=== PATIENT | male | born 1945 | race Caucasian/White ===

== ENCOUNTER 2019-12-12 14:19 | Outpatient (RCR) | payer SELFPAY | END 2019-12-12 23:59 | disposition home or self-care (01) | LOC: ANHAUDIO 14:19 | PROVIDERS: PCP Family Medicine; Visit Provider Family Medicine | DX: Z46.1 Encounter for fitting and adjustment of hearing aid (principal) | CPT/HCPCS: 99199; 92592 ==

== ENCOUNTER 2020-03-08 08:43 | Outpatient (CLI) | payer MEDICARE, OTHER, SELFPAY ==
--- NOTE | ~2020-03-08 | XR_ITS ---
EXAMINATION: XR chest 2V DATE: 03/08/2020 09:50 INDICATION: Cough TECHNIQUE: PA and lateral views of the chest are obtained. COMPARISON: 06/27/2019 FINDINGS: The lungs are free of acute opacities. There is no pleural effusion or pneumothorax. The ca rdiomediastinal silhouette is normal. There is mild thoracic spondylosis. IMPRESSION: 1. No acute cardiopulmonary abnormality. Reviewed, dictated and finalized at location A.
--- NOTE | 2020-03-11 12:58 | WPDPFTINT ---
PFT Interpretation PFT Interpretation: DOS: 03/08/2020 REQUESTING: Roberto Lennon REASON FOR TESTING: shortness of breath PULMONARY FUNCTION TESTS Results are reliable and reproducible. Spirometry: FEV1 72% mildly reduced. FVC 62% reduced. FEV1% is normal, 77% predicted. The HCF69-01% is 70% and increases 45% after bronchodilator. Lung volumes: TLC 79%, mildly decreased. Slow vital capacity is 69%, higher than the FVC at 62%. This suggests dynamic airway collapse. RV is 80%, normal. RV/TLC is 42%, normal. No air trapping. Airway resistance is normal 118%. Diffusion: DLCO normal 95%. Flow volume loop: Restrictive pattern. IMPRESSION: Mild small airways pattern with good response to bronchodilator. There is mild restriction. The patient's weight is not excessive, so the restriction is not due to elevated BMI. Regina Griggs MD
== END 2020-03-08 08:44 | disposition home or self-care (01) ==
PROVIDERS: PCP Family Medicine; Visit Provider Internal Medicine Critical Care Medicine
DX: R05 Cough (principal); R06.02 Shortness of breath
CPT/HCPCS: 71046; 94060; 94726; 94729

== ENCOUNTER 2021-12-19 09:44 | Outpatient (CLI) | payer MEDICARE, OTHER, SELFPAY ==
--- NOTE | 2021-12-19 10:15 | EST_ITS ---
Patient Info Name: Marco Garcia Age: 76 years : 1945 Gender: Male Ht: 70 in Wt: 185 lbs BSA: 2.05 m2 HR: 62 bpm BP: 144 / 80 mmHg Heart Rhythm: Sinus Rhythm Technical Quality: Fair Exam Date: 12/19/2021 10:22 AM Exam Location: [facility] Patient Status: Outpatient Admit Date: 12/19/2021 Staff Ordering Physician: Luke Davila PA-C [place] Field Worker: Cecilia Cool RDCS Attending Provider: Referring Physician: Giovanni VINCENT; Exam Type: CA stress echo Study Info Indications - chest pain Treadmill exercise stress echocardiogram is performed. Summary 1. 1. Negative Corey exercise stress test for ischemic ST changes by ECG criteria. 2. 2. Reduced functional capacity, achieving 4 METs of workload. 3. 3. Baseline hypertension with hypertensive response to exercise. 4. 4. Appropriate HR response to exercise. 5. 5. Appropriate HR recovery at 1 minute post exercise. 6. 6. Negative stress echocardiogram for ischemia by wall motion analysis. 7. 7. Patient informed of the above results. Stress Echo Findings Left Ventricle Appropriate increase in LV endocardial thickening with systole. Appropriate augmentation of contractility with systole. No wall motion abnormality. Left Ventricle Normal LV systolic function, no wall motion abnormality. Protocol: Corey Stress ECG Details Stage: REST Duration (min): 0 min : 47 sec Speed (mph): 0.0 Grade (%): 0 HR (bpm): 62 SBP (mmHg): 144 DBP (mmHg): 80 METS: --- Stage: REST Duration (min): 6 min : 36 sec Speed (mph): 0.0 Grade (%): 0 HR (bpm): 67 SBP (mmHg): 144 DBP (mmHg): 80 METS: --- Stage: STAGE 1 Duration (min): 1 min : 0 sec Speed (mph): 1.7 Grade (%): 10 HR (bpm): 97 SBP (mmHg): 144 DBP (mmHg): 80 METS: --- Stage: STAGE 1 Duration (min): 2 min : 0 sec Speed (mph): 1.7 Grade (%): 10 HR (bpm): 125 SBP (mmHg): 144 DBP (mmHg): 80 METS: --- Stage: STAGE 1 Duration (min): 3 min : 0 sec Speed (mph): 1.7 Grade (%): 10 HR (bpm): 136 SBP (mmHg): 206 DBP (mmHg): 97 METS: --- Stage: STAGE 2 Duration (min): 0 min : 8 sec Speed (mph): 0.0 Grade (%): 0 HR (bpm): 137 SBP (mmHg): 206 DBP (mmHg): 97 METS: --- Stage: RECOVERY Duration (min): 0 min : 51 sec Speed (mph): 0.0 Grade (%): 0 HR (bpm): 115 SBP (mmHg): 206 DBP (mmHg): 97 METS: --- Stage: RECOVERY Duration (min): 1 min : 51 sec Speed (mph): 0.0 Grade (%): 0 HR (bpm): 86 SBP (mmHg): 206 DBP (mmHg): 97 METS: --- Stage: REST Duration (min): 6 min : 36 sec Speed (mph): 0.0 Grade (%): 0 HR (bpm): 76 SBP (mmHg): 213 DBP (mmHg): 93 METS: --- Stage: RECOVERY Duration (min): 2 min : 51 sec Speed (mph): 0.0 Grade (%): 0 HR (bpm): 76 SBP (mmHg): 213 DBP (mmHg): 93 METS: --- Rest HR: 76 bpm Peak HR: 137 bpm Rest Sys BP: 144 mmH
== END 2021-12-19 09:45 | disposition home or self-care (01) ==
LOC: ANHCARD 09:46
PROVIDERS: PCP Family Medicine; Visit Provider Physician Assistant
DX: R07.89 Other chest pain (principal)
CPT/HCPCS: 93351

== ENCOUNTER 2022-06-15 00:43 | Inpatient (IN) | payer MEDICARE, OTHER, SELFPAY ==
[2022-06-15] VITALS (67 sets, daily range): BP systolic 76–123; BP diastolic 50–76; PULSE 62–92; RESP 12–24; TEMP 36.4–37; O2SAT 93–100
--- NOTE | ~2022-06-15 | XR_ITS ---
EXAMINATION: XR chest 1V portable DATE: 06/15/2022 01:40 INDICATION: Near syncope. COVID-19 positive. TECHNIQUE: A single frontal view of the chest was obtained. COMPARISON: Chest 2 views 03/08/2020 FINDINGS: There is mild atelectasis at the lung bases. No pleural effusion or pneumothorax. Cardiomeg milind is noted. IMPRESSION: 1. Mild atelectasis at the lung bases. 2. Cardiomegaly. Reviewed, dictated and finalized at location A.
--- NOTE | 2022-06-15 00:54 | PC.NURSE ---
Rest of IV fluid that was initiated by EMS opened wide open per ERP.
--- NOTE | 2022-06-15 01:00 | ECG_ITS ---
Measurements Intervals [place] Rate: 69 P: TX: 0 QRS: 7 QRSD: 98 T: 10 QT: 390 QTc: 420 Interpretive Statements ATRIAL FIBRILLATION INCOMPLETE RIGHT BUNDLE BRANCH BLOCK BASELINE ARTIFACT- I, III, AVR, AVL, AVF ABNORMAL ECG NO PREVIOUS ECG AVAILABLE FOR COMPARISON Electronically Signed On 06-15-2022 8:30:48 CDT by Christopher Saunders D.O.
[2022-06-15] MEDS: SODIUM CHLORIDE 0.9% IV 1,000 ML 999 ML IV CONT ×3 (01:13→17:08)
[2022-06-15 01:25] LABS: Basophils Percent Auto 0.2 % (0.2-1.2); Eosinophils Percent Auto 0.5 % (0-4.4); Hematocrit 39.1 % (42.0-52.0); Hemoglobin 13.3 g/dL (14.0-18.0); Immature Granulocyte Absolute 0.03 K/mm3 (0.00-0.031); Immature Granulocyte Percent A 0.5 % (0-0.5); Lymphocytes Absolute Auto 1.05 K/mm3 (0.9-3.2); Lymphocytes Percent Auto 17.1 % (18.3-44.2); Mean Corpuscular Hemoglobin 30.6 pg (26-34); Mean Corpuscular Volume 90.1 fl (80-100); Mean Platelet Volume 10.8 fl (7.4-10.4); Monocytes Absolute Auto 0.7 K/mm3 (0.1-0.6); Monocytes Percent Auto 10.7 % (2.6-8.5); Neutrophils Absolute Auto 4.4 K/mm3 (1.3-6.7); Platelet Count Result 178 k/mm3 (150-375); Red Blood Count 4.34 M/mm3 (4.6-6.20); Red Cell Distribution Width 13.8 % (11.5-14.5); White Blood Count 6.2 K/mm3 (4.5-10.0)
[2022-06-15 01:41] LABS: Appearance Urine Clear (Clear); Bilirubin Urine Negative (Negative); Color Urine Yellow (Yellow); Glucose Urine UA Trace mg/dL (Negative); Ketones Urine Negative (Negative); Leukocyte Esterase Ur Negative LEU/UL (Negative); Nitrate Urine Negative (Negative); Protein Urine 2+ mg/dL (Negative); Specific Grav Ur 1.015 (1.001-1.035); Urobilinogen Urine 0.2 mg/dL (<2.0)
[2022-06-15 01:42] LABS: Lactic Acid Reflex 1.4 mmol/L (0.7-2.0)
[2022-06-15 01:43] LABS: Add Urine Microscopic? YES; Blood Urine Trace (Negative)
[2022-06-15 01:44] LABS: Alanine Aminotransferase 31 U/L (6-50); Albumin Level 3.7 g/dL (3.5-5.1); Alkaline Phosphatase 79 U/L (38-126); Anion Gap 12 mmol/L (8-16); Aspartate Amino Transferase 38 U/L (17-59); Bilirubin,Total 0.3 mg/dL (0.2-1.3); Blood Urea Nitrogen 15 mg/dL (9-20); Calcium 8.2 mg/dL (8.4-10.2); Carbon Dioxide 33 mmol/L (22-30); Chloride 87 mmol/L (98-107); Estimated CRCL calculation 57 ml/min; Estimated Glomerular Filt Rate > 60; Glucose 204 mg/dL (65-110); Potassium 4.1 mmol/L (3.4-5.0); Sodium 132 mmol/L (137-145)
[2022-06-15 01:46] LABS: RBC Urine 0-2 /hpf (0-2); Squamous Epithelial Cell Urine Rare /hpf (Few); WBC Urine 0-3 /hpf
--- NOTE | 2022-06-15 02:59 | ED.GENADULT ---
HPI - General Adult General Chief complaint: Syncope Stated complaint: covid symptoms History of Present Illness HPI narrative: Patient is a 76-year-old male who presents the ER with near syncope. Reports he was using the restroom when he got up he got really lightheaded and could not walk. He had to lay down on the ground. He was in too weak to get up. Did not strike his head or lose consciousness. Diagnosed with COVID 2 days ago. Has had fevers and chills. He is not on any antiviral medication. He is continue take his home blood pressure medications which include carvedilol, indapamide, and telmisartan. Patient endorses body aches. Related Data Home Medications Medication Instructions Recorded Confirmed simvastatin 20 mg tablet mg 06/15/22 Allergies Allergy/AdvReac Type Severity Reaction Status Date / Time bacitracin Allergy Intermediate dermatitis Verified 06/15/22 00:49 [From Neosporin on arm ([id number])] neomycin Allergy Intermediate dermatitis Verified 06/15/22 00:49 [From Neosporin on arm ([id number])] polymyxin B Allergy Intermediate dermatitis Verified 06/15/22 00:49 [From Neosporin on arm ([id number])] Review of Systems Review of Systems: All systems reviewed & are unremarkable except as noted in HPI and below Constitutional: Constitutional: Reports chills, Reports fatigue and Reports fever(s) ENT: Denies nasal congestion and Denies sore throat Cardiovascular: Cardiovascular: Denies chest pain, Denies rapid heart rate and Denies radiating jaw, neck or arm pain Respiratory: Respiratory: Denies cough, Denies dyspnea and Denies wheezing Musculoskeletal: Musculoskeletal: Reports myalgias Neurologic: Reports dizziness, Denies headache(s), Denies focal weakness and Denies numbness [facility] Past Medical History Medical History (Updated 06/15/22 @ 06:50 by Lucas Momin MD) Chronic cough Essential (primary) hypertension Mixed hyperlipidemia Type 2 diabetes mellitus without complications Surgical History Surgical History (Updated 06/15/22 @ 03:42 by Lucas Momin MD) History of carpal tunnel release Family History Family History Father Family history of cardiovascular disease Family history of coronary artery disease Mother Diabetes mellitus Social History Social History Alcohol intake: never Exam Narrative: GENERAL: Well-appearing, well-nourished, and in no acute distress. HEAD: Normocephalic, atraumatic. EYES: PERRL and EOMI. ENT: Mucous membranes moist. CHEST: Clear to auscultation. No respiratory distress. HEART: Irregular regular rate and rhythm. Normal peripheral pulses. ABDOMEN: Soft, nontender, nondistended. EXTREMITIES: Normal range of motion. No edema. SKIN: Warm, dry, no rash. NEURO: No focal deficits. Alert and oriented x3. PSYCH: Normal mood and affect. Course Course Emergency Course: Patient with persistent hypotension after 3 L of IV fluid. Patient looks well, will occasionally get dizzy with standing but mainly reports she just feels fatigued. Will start maintenance fluids and admit for observation. Vital Signs Vital signs: Vital Signs Temperature 98.1 F 06/15/22 00:42 Pulse Rate 84 06/15/22 00:42 Respiratory Rate 24 H 06/15/22 00:42 Blood Pressure 92/61 L 06/15/22 00:42 Pulse Oximetry 99 06/15/22 00:42 Oxygen Delivery Room Air 06/15/22 00:42 Temperature 98.1 F 06/15/22 00:42 Pulse Rate 72 06/15/22 06:32 Respiratory Rate 17 06/15/22 06:32 Blood Pressure 88/55 L 06/15/22 06:32 Pulse Oximetry 97 06/15/22 06:32 Oxygen Delivery Room Air 06/15/22 00:42 Medical Decision Making Vital Signs Vital Signs: Vital Signs Temperature 98.1 F 06/15/22 00:42 Pulse Rate 84 06/15/22 00:42 Respiratory Rate 24 H 06/15/22 00:42 Blood Pressure 92/61 L 09
[2022-06-15] MEDS: CALCIUM GLUCONATE 1,000 MG/10 ML VIAL 1000 MG IV PUSH (03:44)
--- NOTE | 2022-06-15 05:14 | PC.NURSE ---
Contacted patients , Delaney at [phone] to update her on patients status to be admitted. Informed her that he will not be able to visit since patient has covid.
[2022-06-15] MEDS: SODIUM CHLORIDE 0.9% IV 1,000 ML 150 ML IV CONT (05:33)
--- NOTE | 2022-06-15 08:43 | ADMGEN ---
This patient, Marco Garcia, was admitted to IMU Room 213-01 at 0840. Patient/family oriented to hospital policies and general routines including ID bracelet, bed and alarms, visiting hours, pain management, procedures, bathroom and other care routines, personal items, smoking policy, room service/diet, and visiting hours. Information on how to activate the Rapid Response Team has been discussed. Patient/Family are encouraged to report perceived risks to care and to ask questions if they do not understand what they are told or what they should do.
--- NOTE | 2022-06-15 17:51 | PM.SD2 ---
Same Day Admit/Disch: HPI History of Present Illness Chief complaint: covid,near syncope,low blood pressure Narrative: Marco Garcia is a 76 year old male with past medical history significant for diabetes, hyperlipidemia, hypertension, GERD, who had a negative stress test in December of 2021 is presenting with a syncopal episode during micturition. He states he has had separate episodes of vasovagal syncope in the past 10 years, all of them precipitated by dehydration or stress from what he can remember. This episode was precipitated by a positive COVID test a few days ago, since then, he has been having difficulty pushing p.o. fluids due to nausea. He has been feeling lightheaded upon standing. He does deny chest pain, shortness a breath, emesis or diarrhea. Of note, he had a stress test in December of this year that was negative for ischemia. He states his blood sugars run anywhere from 130-180 at home when he checks them regularly. He states he was urinating in the restroom when he woke up on the floor. He states he was urinating well seated, he simply slumped to the floor and did not hit his head per his . He felt somewhat weak and lightheaded afterwards and so they brought him to the ER. In the ER, he had persistent hypotension was given aggressive fluid resuscitation. Orthostatic vital signs were positive. Labs were essentially unremarkable. Urinalysis and chest x-ray were negative for infection. [facility] Past Medical History Medical History Chronic cough Essential (primary) hypertension Mixed hyperlipidemia Type 2 diabetes mellitus without complications Surgical History Surgical History History of carpal tunnel release Family History Family History Father Family history of cardiovascular disease Family history of coronary artery disease Mother Diabetes mellitus Social History Social History Smoking status: Never smoker Alcohol intake: never Spiritual care concerns: No Same Day Admit/Disch: Med Pre-admit Medications Home Medications Medication Instructions Recorded Confirmed Type aspirin 81 mg tablet,delayed 81 mg PO DAILY #30 tabs 10/13/19 06/15/22 Rx release carvedilol 12.5 mg tablet See Rx Instructions .Route 10/24/21 06/15/22 Rx .COMPLEX #180 tabs indapamide 1.25 mg tablet 1.25 mg PO DAILY #90 tabs 10/24/21 06/15/22 Rx metformin 500 mg tablet,extended 1,000 mg PO DAILY #360 tabs 10/24/21 06/15/22 Rx release 24 hr pioglitazone 30 mg tablet (Actos) 30 mg PO DAILY #90 tabs 10/24/21 06/15/22 Rx telmisartan 80 mg tablet (Micardis) 80 mg PO DAILY #90 tabs 10/24/21 06/15/22 Rx pyridoxine (vitamin B6) 100 mg 100 mg PO DAILY 06/15/22 06/15/22 History tablet simvastatin 20 mg tablet 20 mg DAILY 06/15/22 06/15/22 History vitamin B complex (B 1 tablet PO DAILY 06/15/22 06/15/22 History Complex-Vitamin B12 tablet) Exam Narrative: General: No acute distress, alert and oriented per baseline HEENT: Atraumatic, normocephalic, mucous membranes moist CV: Regular rate and rhythm, S1, S2 Lungs: Clear to auscultation bilaterally, no rales or crackles noted, no wheezes, good air entry Abdomen: Soft, nontender, nondistended Extremities: Normal to inspection Skin: No rashes noted, no lesions or wounds seen Psych: Euthymic, normal affect DS: Data Data Completed and Pending Labs on day of discharge: Labs from last 24 hours 06/15/22 06/15/22 06/15/22 01:24 01:17 01:17 WBC 6.2 RBC 4.34 L Hgb 13.3 L Hct 39.1 L MCV 90.1 MCH 30.6 MCHC 34.0 RDW 13.8 Plt Count 178 MPV 10.8 H Immature Gran % (Auto) 0.5 Neut % (Auto) 71.0 Lymph % (Auto) 17.1 L [place] % (Auto) 10.7 H Eos % (Auto) 0.5 Baso % (Auto) 0.2 Lymph # (Auto)
== END 2022-06-15 18:30 | disposition home or self-care (01) | DRG 179 ==
LOC: ANHED 06:50 → ANHIMU 17:51
PROVIDERS: Admitting Provider Internal Medicine; Emergency Provider Emergency Medicine; PCP Family Medicine; Visit Provider Student in an Organized Health Care Education/Training Program
DX: U07.1 COVID-19 (principal); I95.1 Orthostatic hypotension; E86.0 Dehydration; I10 Essential (primary) hypertension; E78.2 Mixed hyperlipidemia; E11.9 Type 2 diabetes mellitus without complications; K21.9 Gastro-esophageal reflux disease without esophagitis; R05.3 Chronic cough
CPT/HCPCS: 36415; 71045; 80053; 81001; 83605; 85025; 93005; 96361; 96374; 96375; 99285; J0610; J1100; J7030

== ENCOUNTER 2022-07-10 08:01 | Emergency (ER) | payer MEDICARE, OTHER, SELFPAY ==
[2022-07-10 08:08] VITALS: BP 122/68; PULSE 64; RESP 16; TEMP 36.9; O2SAT 100
--- NOTE | 2022-07-10 08:17 | ED.URI ---
HPI - URI/Sore Throat General Chief Complaint: Upper Respiratory Infection Stated Complaint: Sore throat History of Present Illness HPI Narrative: 76 y/o male presented for c/o sore throat for one week. Taking cepacol per pcp recommendations. States it feels like cotton ball when swallowing, but denies difficulty swallowing food or secretions. Denies associated headache, ear pain, cough, sinus congestion or drainage, n/v/d/f/c. Rates pain 11/20. Related Data Home Medications Medication Instructions Recorded Confirmed pyridoxine (vitamin B6) 100 mg 100 mg PO DAILY 06/15/22 06/15/22 tablet simvastatin 20 mg tablet 20 mg DAILY 06/15/22 06/15/22 vitamin B complex (B 1 tablet PO DAILY 06/15/22 06/15/22 Complex-Vitamin B12 tablet) Allergies Allergy/AdvReac Type Severity Reaction Status Date / Time bacitracin Allergy Intermediate dermatitis Verified 07/10/22 08:17 [From Neosporin on arm ([id number])] neomycin Allergy Intermediate dermatitis Verified 07/10/22 08:17 [From Neosporin on arm ([id number])] polymyxin B Allergy Intermediate dermatitis Verified 07/10/22 08:17 [From Neosporin on arm ([id number])] Review of Systems Review of Systems: CONSTITUTIONAL: Denies body aches, fever, chills, or sweats. EYES: Denies visual changes, redness, or discharge. ENT: Denies otalgia. CARDIOVASCULAR: Denies chest pain, palpitations, or edema. RESPIRATORY: Denies dyspnea. GASTROINTESTINAL: Denies abdominal pain, nausea, vomiting, or diarrhea. SKIN: Denies rash, itching, or wounds. MUSCULOSKELETAL: Denies back pain, joint pain, or myalgia. NEUROLOGIC: Denies headache PMFSH Past Medical History Medical History Chronic cough Essential (primary) hypertension Mixed hyperlipidemia Type 2 diabetes mellitus without complications Surgical History Surgical History History of carpal tunnel release Family History Family History Father Family history of cardiovascular disease Family history of coronary artery disease Mother Diabetes mellitus Social History Social History Smoking status: Never smoker Alcohol intake: never Spiritual care concerns: No Exam Narrative: GENERAL: well-appearing EYES: conjunctivae clear, mild tearing ENT: Mucous membranes moist. TMs pearly cain with normal light reflex bilaterally; Right ear aide, no tragal tenderness. Oropharynx erythematous without lesions. No drooling, no hoarseness, no trismus, uvula midline. No tripod positioning, hot potato voice, or soft palate swelling. NECK: Supple. Nontender, No lymphadenopathy; thyroid enlarged CHEST: Clear to auscultation, breath sounds equal. HEART: Regular rate and rhythm. No murmur heard. SKIN: Warm, dry, no rash. NEURO: Alert and oriented x3. Course Course Emergency Course: Patient is aware of diagnosis, understands and agrees to treatment plan. Anticipatory guidance given. Patient agrees to follow-up as directed and is aware of reasons to seek care at the emergency department. Portions of this record may have been created with voice recognition software Level of Care: Express Care Visit Vital Signs Vital signs: Vital Signs Temperature 98.5 F 07/10/22 08:08 Pulse Rate 64 07/10/22 08:08 Respiratory Rate 16 07/10/22 08:08 Blood Pressure 122/68 07/10/22 08:08 Pulse Oximetry 100 07/10/22 08:08 Oxygen Delivery Room Air 07/10/22 08:08 Temperature 98.5 F 07/10/22 08:08 Pulse Rate 64 07/10/22 08:08 Respiratory Rate 16 07/10/22 08:08 Blood Pressure 122/68 07/10/22 08:08 Pulse Oximetry 100 07/10/22 08:08 Oxygen Delivery Room Air 07/10/22 08:08 MDM - URI/Sore Throat MDM Narrative Medical decision making narrative: s
== END 2022-07-10 08:34 | disposition home or self-care (01) ==
PROVIDERS: Emergency Provider Nurse Practitioner Family
DX: J02.9 Acute pharyngitis, unspecified (principal); I10 Essential (primary) hypertension; E78.2 Mixed hyperlipidemia; E11.9 Type 2 diabetes mellitus without complications
CPT/HCPCS: 87081; 87880; 99213; G0463

== ENCOUNTER 2022-08-27 08:02 | Emergency (ER) | payer MEDICARE, OTHER, SELFPAY ==
[2022-08-27 08:08] VITALS: BP 117/68; PULSE 64; RESP 16; TEMP 36.5; O2SAT 99
--- NOTE | 2022-08-27 08:19 | ED.SKABFB ---
HPI - Skin/Abscess/Foreign Bdy General Chief complaint: Skin/Abscess/Foreign Body Stated complaint: Sores on side of head not healing Time Seen by Provider: 08/27/22 08:20 Source: patient Mode of arrival: ambulatory Limitations: no limitations History of Present Illness HPI narrative: 76-year-old male presenting for complaint of skin lesion to right roman catholic for the last 2 months. He denies noticeable changes to the site. He states it feels burning at times. Otherwise denies pain, swelling, or drainage to the site. Denies any other skin lesions of concern. States he just wanted this site looked at. Related Data Home Medications Medication Instructions Recorded Confirmed pyridoxine (vitamin B6) 100 mg 100 mg PO DAILY 06/15/22 07/22/22 tablet simvastatin 20 mg tablet 20 mg DAILY 06/15/22 07/22/22 vitamin B complex (B 1 tablet PO DAILY 06/15/22 07/22/22 Complex-Vitamin B12 tablet) carvedilol 12.5 mg tablet 12.5 mg PO Q12H 08/27/22 08/27/22 Allergies Allergy/AdvReac Type Severity Reaction Status Date / Time bacitracin Allergy Intermediate dermatitis Verified 07/22/22 08:42 [From Neosporin on arm ([id number])] neomycin Allergy Intermediate dermatitis Verified 07/22/22 08:42 [From Neosporin on arm ([id number])] polymyxin B Allergy Intermediate dermatitis Verified 07/22/22 08:42 [From Neosporin on arm ([id number])] Review of Systems Review of Systems: CONSTITUTIONAL: Denies body aches, fever, chills, or sweats. EYES: Denies visual changes, redness, or discharge. ENT: Denies rhinorrhea, congestion CARDIOVASCULAR: Denies chest pain, palpitations, or edema. RESPIRATORY: Denies cough or dyspnea. GASTROINTESTINAL: Denies abdominal pain, nausea, vomiting, or diarrhea. SKIN: per HPI MUSCULOSKELETAL: Denies back pain, joint pain, or myalgia. NEUROLOGIC: Denies headache, numbness, tingling, or weakness. PMF Past Medical History Medical History Chronic cough Essential (primary) hypertension Mixed hyperlipidemia Type 2 diabetes mellitus without complications Surgical History Surgical History History of carpal tunnel release Family History Family History Father Family history of cardiovascular disease Family history of coronary artery disease Mother Diabetes mellitus Social History Social History Smoking status: Never smoker Alcohol intake: never Spiritual care concerns: No Comments At time of signature, I have reviewed and agree with nursing past medical, surgical, social and family history unless otherwise noted. Please see nursing chart for further information. There is no relevant family history pertinent to the presenting complaint Exam Narrative: GENERAL: Well-appearing HEAD: Normocephalic, atraumatic. EYES: conjunctivae clear, and EOMI. ENT: Mucous membranes moist. Oropharynx without edema, erythema or lesions. NECK: Supple. No lymphadenopathy CHEST: Clear to auscultation. HEART: Regular rate and rhythm. SKIN: Warm, dry. [id number] diameter slightly raised skin colored lesion to right roman catholic, center with brown/darkened area, nontender, no fluctuance or drainage, no redness or swelling NEURO: Alert and oriented x3. Course Course Emergency Course: Patient is aware of diagnosis, understands and agrees to treatment plan. Anticipatory guidance given. Patient agrees to follow-up as directed and is aware of reasons to seek care at the emergency department. Portions of this record may have been created with voice recognition software Level of Care: Express Care Visit Vital Signs Vital signs: Vital Signs Temperature 97.7 F 08/27/22 08:08 Pulse Rate 64 08/27/22 08:08 Respiratory Rate 16 08/27/22 08:08 Bl
== END 2022-08-27 08:30 | disposition home or self-care (01) ==
PROVIDERS: Emergency Provider Nurse Practitioner Family; PCP Family Medicine
DX: L98.9 Disorder of the skin and subcutaneous tissue, unspecified (principal); I10 Essential (primary) hypertension; E78.2 Mixed hyperlipidemia; E11.9 Type 2 diabetes mellitus without complications
CPT/HCPCS: 99211; 99213; G0463

== ENCOUNTER 2023-01-13 07:18 | Outpatient (CLI) | payer MEDICARE, OTHER, SELFPAY ==
--- NOTE | ~2023-01-13 | XR_ITS ---
EXAMINATION: XR chest 2V DATE: 01/13/2023 07:44 INDICATION: Productive cough. Upper respiratory tract disease. TECHNIQUE: PA and lateral views of the chest were obtained. COMPARISON: Chest radiograph dated 03/08/2020 FINDINGS: Unchanged minimal linear atelectasis/scarring at the anterior lung bases. No new airspace opacities, pulmonary edema, pleural effusion or pneumothorax. The cardiomediastinal silhouette is normal. Mild l ower thoracic kyphosis with mild anterior wedging of a few lower thoracic vertebral bodies. Mild spon dylosis. IMPRESSION: 1. Unchanged mild atelectasis/scarring at the anterior lung bases. Reviewed, dictated and finalized at location A.
== END 2023-01-13 07:19 | disposition home or self-care (01) ==
PROVIDERS: PCP Family Medicine; Visit Provider Family Medicine
DX: J39.8 Other specified diseases of upper respiratory tract (principal); J98.11 Atelectasis
CPT/HCPCS: 71046

== ENCOUNTER 2023-02-01 07:33 | Outpatient (CLI) | payer MEDICARE, OTHER, SELFPAY ==
--- NOTE | 2023-02-01 07:37 | ECHO_ITS ---
Patient Info Name: Marco Garcia Age: 77 years : 1945 Gender: Male Ht: 70 in Wt: 185 lbs BSA: 2.05 m2 HR: 64 bpm BP: 135 / 78 mmHg Technical Quality: Fair Exam Date: 02/01/2023 8:03 AM Exam Location: [facility] Pul[facility] Patient Status: Outpatient Admit Date: 02/01/2023 Staff Ordering Physician: Jose Cee DO Film Library Clerk: Dayanna Almeida RDCS Attending Provider: Jose Cee DO Referring Physician: Jaye BELLO; Exam Type: CA echo doppler color flow Study Info Indications R06.01 - Orthopnea Complete two-dimensional, color flow and Doppler transthoracic echocardiogram is performed. Summary 1. Complete two-dimensional, color flow and Doppler transthoracic echocardiogram is performed. 2. Left ventricular chamber dimension is normal. 3. Left ventricular systolic function is normal, estimated at 60-65%. 4. The left ventricular diastolic function is grade I diastolic dysfunction. 5. E/e' 13 is mildly elevated. 6. Global longitudinal strain is normal at -18.8%. 7. Left atrial chamber dimension is moderately enlarged. 8. No pulmonary hypertension, estimated pulmonary arterial systolic pressure is 19 mmHg. 9. The aortic root size at the sinus of Valsalva is borderline dilated at 4.0 cm. Left Ventricle E/e' 13 is mildly elevated. Global longitudinal strain is normal at -18.8%. Left ventricular chamber dimension is normal. Left ventricular systolic function is normal, estimated at 60-65%. The left ventricular diastolic function is grade I diastolic dysfunction. Right Ventricle Right ventricular systolic function is normal and with normal TAPSE 1.8 cm. Right ventricular chamber dimension is normal. Left Atria Left atrial chamber dimension is moderately enlarged. Right Atria Right atrial chamber dimension is normal. Aortic Valve The aortic valve is trileaflet. There is no aortic valve stenosis. There is no aortic valve regurgitation. Pulmonic Valve There is no pulmonic regurgitation. Mitral Valve There is no mitral valve stenosis. There is no mitral valve regurgitation. Tricuspid Valve There is no tricuspid valve regurgitation. No pulmonary hypertension, estimated pulmonary arterial systolic pressure is 19 mmHg. Pericardium/Pleural There is no pericardial effusion. Inferior Vena Cava Normal inferior vena cava with >50% collapse upon inspiration consistent with normal right atrial pressure, 5 mmHg. Aorta The aortic root size at the sinus of Valsalva is borderline dilated at 4.0 cm. Left Ventricular Outflow Tract Name Value Normal LVOT 2D LVOT Diameter 2.0 cm LVOT Doppler LVOT Peak Gradient 4 mmHg LVOT Mean Gradient 2 mmHg LVOT VTI 23 cm LVOT VTI/AV VTI Ratio 0.8 LVOT Stroke Volume 75 ml LVOT CO 4.9 l/min LVOT CI 2.4 l/min/m2 Pulmonic Valve Name
== END 2023-02-01 07:34 | disposition home or self-care (01) ==
LOC: ANHCARD 07:34
PROVIDERS: PCP Family Medicine; Visit Provider Family Medicine
DX: I10 Essential (primary) hypertension (principal); R06.01 Orthopnea; I51.7 Cardiomegaly
CPT/HCPCS: 93306

== ENCOUNTER 2024-08-30 09:45 | Emergency (ER) | payer MEDICARE, OTHER, SELFPAY ==
[2024-08-30 09:54] VITALS: BP 101/54; PULSE 59; RESP 16; TEMP 36.5; O2SAT 99
--- NOTE | 2024-08-30 10:08 | ED_ITS ---
HPI - Extremity Injury (Upper) General Chief Complaint: Extremity Injury, Upper Stated Complaint: left hand pinky finger infection History of Present Illness HPI narrative: patient is a 78-year-old male, past medical history significant for diabetes and hypertension, presents to [facility] with an area of crusting and drainage to the left 5th finger cuticle, onset of symptoms 2 weeks ago. He states it started with a pustule and has since opened and drained however he continues to have some erythema and tenderness to the area immediately surrounding the nail plate. He has no known trauma, he denies foreign body risk, he has no history of MRSA. He is right-hand dominant. He has not attempted any modifying factors at home. He states that his blood sugars are well controlled Related Data Home Medications Medication Instructions Recorded Confirmed aspirin 325 mg tablet 325 mg PO DAILY 05/05/24 08/30/24 Allergies Allergy/AdvReac Type Severity Reaction Status Date / Time bacitracin Allergy Intermediate dermatitis Verified 08/21/24 11:27 [From Neosporin on arm ([id number])] neomycin Allergy Intermediate dermatitis Verified 08/21/24 11:27 [From Neosporin on arm ([id number])] polymyxin B Allergy Intermediate dermatitis Verified 08/21/24 11:27 [From Neosporin on arm ([id number])] Review of Systems Integumentary/Breasts: Comments: refer HPI [facility] Past Medical History Medical History Chronic cough Essential (primary) hypertension Mixed hyperlipidemia Type 2 diabetes mellitus without complications Surgical History Surgical History History of carpal tunnel release Family History Family History Father Family history of cardiovascular disease Family history of coronary artery disease Mother Diabetes mellitus Social History Social History Smoking status: Never smoker Alcohol intake: never Substance use: never Lack of Transportation: No Lack of Food: Never True Current Housing: I Have Housing Concerned About Future Housing: No Difficulty Paying Gas/Electric Bills: No Difficulty Paying for Meds: No Currently Unemployed: No Education: Decline to Answer Difficulty w/ Childcare or Family Care: No Spiritual care concerns: No Exam Const: General: cooperative, healthy appearing, comfortable, no acute distress and well developed Nutritional Appearance: average body habitus and well nourished Orientation/consciousness: oriented to person, oriented to place, oriented to time and patient oriented x3 Limitations: no limitations HENMT: Head: normal to inspection Ears: hearing grossly normal bilaterally Mouth: Yes lip normal Eyes: General: appearance normal, both eyes and all related structures Eyelids: eyelids normal Conjunctivae: conjunctivae normal Sclera: sclerae normal EOM: EOMs intact bilaterally Neck: Neck: normal visual inspection, full ROM and no meningeal signs Resp: Effort & Inspection: normal respiratory effort Auscultation: clear to auscultation bilaterally Cardio: Palpation: normal PMI Rate: regular rate Heart sounds: S1 normal heart sound present and S2 normal heart sound present Skin: Other: patient has a area of honey crusting to the nail plate and near the cuticle of the left 5th finger. There is approximately 3 mm of erythema at the base of the nail plate to the skin surface surrounding, no pustule or fluctuance is noted at this time. There is no lymphangitis, the volar aspect of the left 5th fingers unremarkable on exam. Range of motion is intact in this digit. capillary refill is brisk at the fingertip Neuro: General: oriented to person, oriented to place, oriented to time and patient oriented x3 Cranial nerves: Yes CN's II-XII intact bilaterally Extrem: General: normal to inspection, full ROM and capillary refill normal Course Course Emergency Course: patient has what appears to be of rupture paronychia with some honey crusting present. There is no gross cellulitis present. Plan to treat with topical Bactroban ointment in lieu of oral antibiotic therapy, follow-up with PCP stressed. Patient verbalized understanding he is agreeable with discharge plan of care. Level of Care: Express Care Visit ([id number]) Vital Signs Vital signs: Vital Signs Temperature 36.5 C 08/30/24 09:54 Pulse Rate 59 L 08/30/24 09:54 Respiratory Rate 16 08/30/24 09:54 Blood Pressure 101/54 L 08/30/24 09:54 Pulse Oximetry 99 08/30/24 09:54 Oxygen Delivery Room Air 08/30/24 09:54 Temperature 36.5 C 08/30/24 09:54 Pulse Rate 59 L 08/30/24 09:54 Respiratory Rate 16 08/30/24 09:54 Blood Pressure 101/54 L 08/30/24 09:54 Pulse Oximetry 99 08/30/24 09:54 Oxygen Delivery Room Air 08/30/24 09:54 MDM - Extremity Injury (Upper) MDM Narrative Medical decision making narrative: Rohit, PCP follow-up Differential Diagnosis Differential diagnosis: Likely other ( paronychia, cellulitis, impetigo) Discharge Plan Discharge Clinical Impression: Paronychia Patient Disposition: Home, Self-Care Condition: Stable Instructions: Antibiotic Form, Paronychia (ED) Additional Instructions: WASH THE SKIN SURFACE BEFORE APPLYING TOPICAL OINTMENT PRESCRIBED. KEEP WOUND CLEAN AND DRY OTHERWISE. FOLLOW-UP WITH YOUR PRIMARY CARE PROVIDER IN 2-3 DAYS IF THE SYMPTOMS ARE NOT STARTING TO IMPROVE. Prescriptions: New mupirocin 2 % ointment 1 applic topical TID 10 Days Qty: 22 0RF No Action pioglitazone [Actos] 30 mg tablet 30 mg PO DAILY Qty: 90 3RF aspirin 325 mg tablet 325 mg PO DAILY indapamide 1.25 mg tablet 1.25 mg PO DAILY Qty: 90 3RF Hold Instructions: Resume on 06/19/22. hold until BP regularly 120/80, likely not until this Wednesday. simvastatin 20 mg tablet 20 mg PO DAILY Qty: 90 1RF tamsulosin 0.4 mg capsule 0.4 mg PO DAILY Qty: 90 1RF carvedilol 12.5 mg tablet 12.5 mg PO Q12H Qty: 180 1RF metformin 500 mg tablet extended release 24 hr 1,000 mg PO BID Qty: 360 1RF telmisartan [Micardis] 80 mg tablet 80 mg PO DAILY Qty: 90 1RF Hold Instructions: Resume on 06/19/22. hold until BP regularly 120/80, likely not until this Wednesday. Follow-up/Referrals: Jose Cee DO [Primary Care Provider] - Time of Disposition: 10:14
== END 2024-08-30 10:29 | disposition home or self-care (01) ==
PROVIDERS: Emergency Provider Nurse Practitioner Family; PCP Family Medicine
DX: L03.012 Cellulitis of left finger (principal); I10 Essential (primary) hypertension; E11.9 Type 2 diabetes mellitus without complications; E78.2 Mixed hyperlipidemia; Z79.82 Long term (current) use of aspirin
CPT/HCPCS: 99213; G0463

== ENCOUNTER 2025-02-22 08:07 | Emergency (ER) | payer MEDICARE, SELFPAY ==
--- OUTSIDE RECORDS SUMMARY | 2025-02-22 08:11 | XMS_ITS | Encounter Summary ---
Author Organization [employer] [facility] Address 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
--- OUTSIDE RECORDS SUMMARY | 2025-02-22 08:11 | XMS_ITS | Clinical Summary ---
Author Organization [facility] Address [address] 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
[2025-02-22 08:18] VITALS: BP 120/66; PULSE 56; RESP 16; TEMP 36.5; O2SAT 99
--- NOTE | 2025-02-22 08:45 | ED_ITS ---
HPI - Skin/Abscess/Foreign Bdy General Chief complaint: Skin/Abscess/Foreign Body Stated complaint: mole on back of head Source: patient and RN notes reviewed Mode of arrival: ambulatory Limitations: no limitations History of Present Illness HPI narrative: [age]-old male presents Express Care complaining of a growth to the left side of the scalp. Patient states the growth has been on his scalp for at least 20 years. Patient states that it has been slowly growing. Patient noticed that it was oozing the last couple days and wanted further evaluated. Patient is going to see his primary care provider in his appointment got canceled. Patient reports having similar growths to his ear that removed and noncancerous. Patient denies any pain, fevers, green yellow discharge, or any redness or swelling to the growth. Related Data Home Medications Medication Instructions Recorded Confirmed Last Taken Type aspirin 325 mg tablet 325 mg PO DAILY 05/05/24 08/30/24 Unknown History Allergies Allergy/AdvReac Type Severity Reaction Status Date / Time bacitracin (From Neosporin Allergy Intermediate dermatitis Verified 02/22/25 08:22 ([id number])) on arm neomycin (From Neosporin Allergy Intermediate dermatitis Verified 02/22/25 08:22 ([id number])) on arm polymyxin B (From Neosporin Allergy Intermediate dermatitis Verified 02/22/25 08:22 ([id number])) on arm Review of Systems Review of Systems: CONSTITUTIONAL: Denies fever, chills, or sweats. EYES: Denies visual changes, redness, or discharge. ENT: Denies rhinorrhea, congestion, sore throat, or otalgia. CARDIOVASCULAR: Denies chest pain, palpitations, or edema. RESPIRATORY: Denies cough or dyspnea. GASTROINTESTINAL: Denies abdominal pain, nausea, vomiting, or diarrhea. GENITOURINARY: Denies dysuria or hematuria. SKIN: Denies rash or itching. Positive for skin growth. MUSCULOSKELETAL: Denies back pain, joint pain, or myalgia. NEUROLOGIC: Denies headache, numbness, or weakness. PSYCHIATRIC: Denies anxiety or depression. All other systems reviewed are negative, except as documented in HPI. [facility] Past Medical History Medical History Chronic cough Essential (primary) hypertension Mixed hyperlipidemia Type 2 diabetes mellitus without complications Surgical History Surgical History History of carpal tunnel release Family History Family History Father Family history of cardiovascular disease Family history of coronary artery disease Mother Diabetes mellitus Social History Social History Smoking status: Never smoker Alcohol intake: never Substance use: never Lack of Transportation: No Lack of Food: Never True Current Housing: I Have Housing Concerned About Future Housing: No Difficulty Paying Gas/Electric Bills: No Difficulty Paying for Meds: No Currently Unemployed: No Education: Decline to Answer Difficulty w/ Childcare or Family Care: No Spiritual care concerns: No Comments At the time of my signature, I reviewed and agree with the nursing past medical, surgical, social, and family history. There is no relevant family history pertinent to the patient complaint. Exam Narrative: GENERAL: This is a well-nourished, well-developed adult, in no apparent distress. They are non ill-appearing, nontoxic appearing. HEAD: normocephalic, atraumatic. Scalp: Skin lesion to the left lateral scalp located on the parietal bone. Lesion is flesh-colored and cauliflower like and growth. Serous drainage and crust forming at the base. No exudate, surrounding erythema or swelling, no tenderness to palpation, no induration, no area of fluctuance. Growth is measuring approximately 1.5 cm x 1.5 cm. No other suspicious lesions on scalp. EYES: Sclera clear/white. Conjunctiva normal. Vision is grossly intact. Extraocular movements intact EARS: External ears normal,Hearing grossly intact. NOSE: External nose normal THROAT: Mucous membranes moist, NECK: Neck supple, non-tender without lymphadenopathy, masses or thyromegaly. CARDIOVASCULAR: Regular rate and rhythm RESPIRATORY: Respiratory rate normal, respiratory effort nonlabored, no respir atory distress SKIN: warm, Dry, intact with no suspicious lesions or rash, good texture and turgor. NEURO: awake, alert, and oriented to person, place and time. There were no obvious focal neurologic abnormalities. EXTREMITIES: No joint tenderness, effusion, or edema noted. BACK: Nontender without deformity. Course Course Emergency Course: Portions of this record may have been created with voice recognition software Level of Care: Express Care Visit Vital Signs Vital signs: Vital Signs Temperature 97.7 F 02/22/25 08:18 Pulse Rate 56 L 02/22/25 08:18 Respiratory Rate 16 02/22/25 08:18 Blood Pressure 120/66 02/22/25 08:18 Pulse Oximetry 99 02/22/25 08:18 Oxygen Delivery Room Air 02/22/25 08:18 Temperature 97.7 F 02/22/25 08:18 Pulse Rate 56 L 02/22/25 08:18 Respiratory Rate 16 02/22/25 08:18 Blood Pressure 120/66 02/22/25 08:18 Pulse Oximetry 99 02/22/25 08:18 Oxygen Delivery Room Air 02/22/25 08:18 Reviewed MDM - Skin/Abscess/Foreign Bdy MDM Narrative Medical decision making narrative: No evidence of infection to skin growth. Patient needs to see a substance abuse specialist or follow-up PCP to have skin biopsy performed to determine the cause of the growth, and likely have it removed. Discussed physical exam findings. Advised supportive measures and signs/symptoms to go to the ER. Pt is appropriate for outpt treatment and f/u. Differential Diagnosis Differential diagnosis: Likely other (Carcinoma, benign skin growth, seborrheic keratosis) Critical Care Time Critical Care Time Critical Care Time: No Discharge Plan Discharge Clinical Impression: Skin lesion of scalp Patient Disposition: Home Condition: Stable Instructions: Soft Tissue Mass (ED) Additional Instructions: Please follow-up with the substance abuse specialist for further evaluation management of the skin growth on her scalp. You may need a referral from her PCP for substance abuse specialist. It will likely need biopsy to determine what the cause of the growth this from. Your growth is not appear infected. Follow-up with PCP in 3- 5 days. At the growth changes, it you notice redness, swelling, yellowish green discharge, worsening pain, fevers, or any other concerns please go to the ER immediately. List of local dermatologists [facility] [address], [place] [address] [facility] [address] [place] [id number] [facility] [address] [place] [id number] Patient Language: Bengali Prescriptions: No Action aspirin 325 mg tablet 325 mg PO DAILY carvedilol 12.5 mg tablet 12.5 mg PO Q12H Qty: 180 1RF indapamide 1.25 mg tablet 1.25 mg PO DAILY Qty: 90 1RF metformin 500 mg tablet extended release 24 hr 1,000 mg PO BID Qty: 360 1RF pioglitazone [Actos] 30 mg tablet 30 mg PO DAILY Qty: 90 1RF simvastatin 20 mg tablet 20 mg PO DAILY Qty: 90 1RF tamsulosin 0.4 mg capsule 0.4 mg PO DAILY Qty: 90 1RF telmisartan [Micardis] 80 mg tablet 80 mg PO DAILY Qty: 90 1RF Follow-up/Referrals: Jose Ramon Whiting MD [Primary Care Provider] - Time of Disposition: 08:35
== END 2025-02-22 08:42 | disposition home or self-care (01) ==
PROVIDERS: PCP Family Medicine
DX: L98.9 Disorder of the skin and subcutaneous tissue, unspecified (principal); I10 Essential (primary) hypertension; E78.2 Mixed hyperlipidemia; E11.9 Type 2 diabetes mellitus without complications; Z79.84 Long term (current) use of oral hypoglycemic drugs; Z79.82 Long term (current) use of aspirin
CPT/HCPCS: 99211; G0463

== ENCOUNTER 2025-02-23 08:19 | Emergency (ER) | payer OTHER, SELFPAY ==
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
[2025-02-23 08:20] VITALS: BP 140/75; PULSE 58; RESP 20; TEMP 36.8; O2SAT 98
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
--- OUTSIDE RECORDS SUMMARY | 2025-02-23 08:23 | XMS_ITS | Continuity of Care Document ---
Author Organization [facility] Address [address] [place] [address] Phone Care Team Providers Care Account Receivable Associate Name Role Phone Lilliam Guerrero Unavailable Unavailable Advance Directives Directive Yes / No Effective Date File Name No Information Encounters Encounter Description Practice Location Reason(s) For Visit Diagnoses Date Provider Providers Copied on Encounter [facility], [address], [place], [place], [id number], [place] tel:[phone] [facility] No Information [phone] Yolanda Vyas. [address] , [address], [place], [address], [place]. tel:[phone] Family History Family Member Type Diagnosis Age At Onset No Information Payers Payer name Insurance type Covered alliance party ID Authoriza tion(s) [facility] CI [id number] Social History Type Description Quantity Date Captured [...]
--- OUTSIDE RECORDS SUMMARY | 2025-02-23 08:23 | XMS_ITS | Encounter Summary ---
Author Organization [facility] Address 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
--- OUTSIDE RECORDS SUMMARY | 2025-02-23 08:23 | XMS_ITS | Clinical Summary ---
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
--- NOTE | 2025-02-23 08:59 | PC.NURSE ---
pt to xray via wheelchair.
[2025-02-23 09:35] VITALS: BP 133/67; PULSE 54; RESP 20; O2SAT 99
[2025-02-23 10:28] VITALS: BP 170/86; PULSE 53; RESP 20; O2SAT 99
== END 2025-02-23 10:29 | disposition home or self-care (01) ==
PROVIDERS: Emergency Provider Emergency Medicine; PCP Family Medicine
DX: S50.11XA Contusion of right forearm, initial encounter (principal); M19.031 Primary osteoarthritis, right wrist; M25.531 Pain in right wrist; M54.50 Low back pain, unspecified; E11.9 Type 2 diabetes mellitus without complications; I10 Essential (primary) hypertension; E78.5 Hyperlipidemia, unspecified; E78.2 Mixed hyperlipidemia; V89.2XXA Person injured in unspecified motor-vehicle accident, traffic, initial encounter
CPT/HCPCS: 72125; 72128; 72131; 72192; 73110; 99284

== ENCOUNTER 2025-03-06 08:05 | Outpatient (CLI) | payer MEDICARE, SELFPAY ==
--- OUTSIDE RECORDS SUMMARY | 2025-03-06 08:08 | XMS_ITS | Clinical Summary ---
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
--- OUTSIDE RECORDS SUMMARY | 2025-03-06 08:08 | XMS_ITS | Encounter Summary ---
Author Organization [employer] Address 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
[2025-03-06 11:07] LABS: Basophils Percent Auto 0.4 % (0.2-1.2); Eosinophils Absolute Auto 0.3 K/mm3 (0-0.3); Eosinophils Percent Auto 3.7 % (0-4.4); Hematocrit 42.5 % (42.0-52.0); Hemoglobin 13.9 g/dL (14.0-18.0); Immature Granulocyte Absolute 0.02 K/mm3 (0.00-0.031); Immature Granulocyte Percent A 0.3 % (0-0.5); Lymphocytes Absolute Auto 1.76 K/mm3 (0.9-3.2); Lymphocytes Percent Auto 23.2 % (18.3-44.2); Mean Corpuscular HGB Conc 32.7 g/dl (32-36); Mean Corpuscular Hemoglobin 30.4 pg (26-34); Mean Platelet Volume 11.2 fl (7.4-10.4); Monocytes Absolute Auto 1.1 K/mm3 (0.1-0.6); Monocytes Percent Auto 14.1 % (2.6-8.5); Neutrophils Absolute Auto 4.4 K/mm3 (1.3-6.7); Neutrophils Percent Auto 58.3 % (45.5-73.1); Platelet Count Result 250 k/mm3 (150-375); Red Blood Count 4.57 M/mm3 (4.6-6.20); Red Cell Distribution Width 13.3 % (11.5-14.5); White Blood Count 7.6 K/mm3 (4.5-10.0)
[2025-03-06 11:21] LABS: Alanine Aminotransferase 24 U/L (6-50); Albumin Level 4.3 g/dL (3.5-5.1); Alkaline Phosphatase 56 U/L (38-126); Anion Gap 5 mmol/L (4-12); Aspartate Amino Transferase 58 U/L (17-59); Bilirubin,Total 0.7 mg/dL (0.2-1.3); Blood Urea Nitrogen 15 mg/dL (9-20); Calcium 9.2 mg/dL (8.4-10.2); Carbon Dioxide 33 mmol/L (22-30); Chloride 95 mmol/L (98-107); Cholesterol 119 mg/dL (0-200); Estimated Glomerular Filt Rate > 60; Glucose 112 mg/dL (65-110); HDL Direct 52 mg/dL; Potassium 3.9 mmol/L (3.4-5.0); Sodium 133 mmol/L (137-145); Triglycerides 97 mg/dL (<150)
[2025-03-06 11:31] LABS: LDL Cholesterol Direct 32 mg/dL
[2025-03-06 11:42] LABS: Hemoglobin A1C 6.4 % (<5.7)
[2025-03-06 12:44] LABS: Creatinine Urine 70.4 mg/dL
[2025-03-06 12:51] LABS: MALB Creatinine Ratio 9.4 mg/g (0-30); Microalbumin Urine Random 6.6 mg/L (0-16.7)
== END 2025-03-06 08:06 | disposition home or self-care (01) ==
LOC: ANHGOSHLAB 08:06
PROVIDERS: PCP Family Medicine; Visit Provider Nurse Practitioner Family
DX: E78.2 Mixed hyperlipidemia (principal); I10 Essential (primary) hypertension; E11.49 Type 2 diabetes mellitus with other diabetic neurological complication; N52.9 Male erectile dysfunction, unspecified; F43.22 Adjustment disorder with anxiety
CPT/HCPCS: 36415; 80053; 80061; 82043; 83036; 84443; 85025

== ENCOUNTER 2025-03-23 09:09 | Outpatient (RCR) | payer MEDICARE, SELFPAY ==
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
--- NOTE | 2025-03-23 10:38 | OPREHPOC ---
Outpatient Therapy Plan of Care This is a Multidisciplinary Plan of Care that may contain components documented by all disciplines (PT, OT, and ST.) PT Problem 1 PT Problem #1 Knowledge Deficit PT Goal 1 Goal / Goal Update 1. Patient to demonstrate independence with HEP for improved self-reliance of symptom management. Target Visit 6 PT Problem 2 PT Problem #2 Pain PT Goal 1 Goal / Goal Update 1. Patient to decrease subjective reports of pain to <2/10 for improved ADL tolerance. 2. Patient to report an improvement in radiating symptoms into R thigh by 50% to increase ability to perform ADLs. 3. Pt will report ability to perform yard work and homemaking duties without a significant increase in low back pain. Target Visit 6 PT Problem 3 PT Problem #3 Impaired Range of Motion PT Goal 1 Goal / Goal Update 1. Patient will improve Gui LE flexibility by demonstrating increased hamstring length to <30 degrees in 90/90 position 2. Patient will improve Gui hip rotation to allow for at least 90 degrees of combined hip rotation. 3. Patient will improve gross lumbar ROM to 75% of WNL to with minimal pain provocation Target Visit 6 PT Problem 4 PT Problem #4 Impaired Strength PT Goal 1 Goal / Goal Update 1. Patient will demonstrate improved strength of the bilateral hip abductors and extensors to 4+/5 on manual muscle testing in order to improve lumbar stability. Target Visit 6
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
== END 2025-04-03 08:55 | disposition home or self-care (01) ==
LOC: ANHGOSHPT 09:09
PROVIDERS: PCP Family Medicine; Visit Provider Nurse Practitioner Family
DX: M54.12 Radiculopathy, cervical region (principal); M43.06 Spondylolysis, lumbar region
CPT/HCPCS: 97110; 97140; 97161

== ENCOUNTER 2025-07-30 14:09 | Outpatient (CLI) | payer MEDICARE, SELFPAY ==
--- NOTE | ~2025-07-30 | XR_ITS ---
XR abdomen/kub 1V 07/30/2025 14:24 Indication: Flank pain Procedure: KUB Comparison: No prior studies for comparison. Findings: No abnormal calcifications to suggest renal/ureteral stones. There are sclerotic lesions bilaterally in the pelvis, suspicious for metastatic disease. No acute bone or joint abnormality. Nonobstructive bowel gas pattern. Impression: 1: Bilateral sclerotic lesions of the pelvis. Cannot exclude metastatic disease. Consider correlation with nuclear bone scan. Reviewed, dictated and finalized at location O. Impression: 1: Bilateral sclerotic lesions of the pelvis. Cannot exclude metastatic disease . Consider correlation with nuclear bone scan.
== END 2025-07-30 14:10 | disposition home or self-care (01) ==
LOC: GOSHIMG 14:09
PROVIDERS: PCP Family Medicine; Visit Provider Nurse Practitioner Family
DX: M99.85 Other biomechanical lesions of pelvic region (principal)
CPT/HCPCS: 74018

== ENCOUNTER 2025-08-06 07:14 | Outpatient (CLI) | payer MEDICARE, SELFPAY ==
--- OUTSIDE RECORDS SUMMARY | 2006-03-19 06:00 | XMS_ITS | Continuity of Care Document ---
Author Organization [facility] Address [address] [place] [address] Phone Care Team Providers Care Stock Fitter Name Role Phone Lilliam Guerrero Unavailable Unavailable Advance Directives Directive Yes / No Effective Date File Name No Information Encounters Encounter Description Practice Location Reason(s) For Visit Diagnoses Date Provider Providers Copied on [facility]counter [facility] [address], [place], [place], [id number], [place] tel:[phone] [facility] No Information [phone] Yolanda Vyas. [address] , [address], [place], [address], [place]. tel:[phone] Family History Family Member Type Diagnosis Age At Onset No Information Payers Payer name Insurance type Covered libertarian ID Authoriza tion(s) [facility] CI [id number] Social History Type Description Quantity Date Captured Comments Sex Male Smoking Status No Information Chief Complaint And Reason For Visit No Information Reason For Referral Reason For Referral No Information History Of Present Illness Encounter Date Complaint History Of Prese nt Illness No Information Functional Status Date Functional Assessmen t No Information Instructions Date Instruction Additional Infor mation No Information Assessments Type Assessment Date No Information Patient Care Teams Name Effective Dates (start - stop) Status Members No Information
--- NOTE | ~2025-08-06 | NM_ITS ---
EXAMINATION: NM bone scan whole body DATE: 08/06/2025 11:28 INDICATION: Secondary malignant neoplasm of bone TECHNIQUE: 26.1 mCi Tc-99m HDP was administered intravenously. Delayed whole- body scintigrams were obtained. COMPARISON: CT of the spine and pelvis dated 02/23/2025 FINDINGS: Likely degenerative joint centered uptake at the left wrist and bilateral sternoclavicular and acromioclavicular joints. 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 No other suspicious foci of abnormal bone uptake to suggest malignancy. IMPRESSION: 1. Typical pattern of mild likely degenerative joint centered uptake as detailed above. No lesion suspicious for osseous malignancy, either primary or metastatic Reviewed, dictated and finalized at location A. IMPRESSION: 1. Typical pattern of mild likely degenerative joint centered uptake as detaile d above. No lesion suspicious for osseous malignancy, either primary or metasta tic
--- OUTSIDE RECORDS SUMMARY | 2025-08-06 07:20 | XMS_ITS | Clinical Summary ---
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
--- OUTSIDE RECORDS SUMMARY | 2025-08-06 07:20 | XMS_ITS | Encounter Summary ---
Author Organization [facility] Address 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
--- OUTSIDE RECORDS SUMMARY | 2025-08-06 07:20 | XMS_ITS | Encounter Summary ---
Author Organization [facility] Address [address] [place] [address] Care Team Providers Care Monitoring Analyst Name Role Phone Unavailable Primary Care Provider Unavailabl e Encounter Details Date Type Department Care Team (Late st Contact Info) Description 03/14/2025 Lab Requisition [facility] Physician [facility] - DermPath Lab [address] [place] [address] Savannah Villareal MD [address] [facility] [address] [place] [address] Social History Tobacco Use Types Packs/Day Years Used Date Smoking Tobacco: Never Assessed Sex and Gender Information Value Date Recorded Sex Assigned at Not on file Legal Sex Male 3:34 PM CDT Gender Identity Not on file Sexual Orientation Not on file documented as of this encounter Plan of Treatment Not on file documented as of this encounter Procedures Procedure Name Priority Date/Time Associated Diagnosis Comments DERMATOPATHOLOGY Routine 03/14/2025 2:41 PM CDT documented in this encounter Results * DERMATOPATHOLOGY (03/14/2025 2:41 PM CDT) Case Report Dermatopathology Report Case: [id number] Authorizing Provider: Savannah Villareal MD Collected: 03/14/2025 02:41 PM Ordering Location: [facility] Physician [facility] - Received: 03/16/2025 06:05 AM DermPath Lab Pathologist: Augusta Nuñez MD Specimen: Skin, left scalp 1:38 PM CDT DERMATOPATHOLOGY LABORATORY Final Diagnosis Specimen A. SKIN, left scalp: INTRADERMAL MELANOCYTIC NEVUS (D22.4) 1:38 PM CDT DERMATOPATHOLOGY LABORATORY at 1338 CDT Clinical History Nevus; Growing, Irritated, Painful 1:38 PM CDT DERMATOPATHOLOGY LABORATORY Gross Description Specimen A: Received is one formalin filled container labeled with the patient's name and designated left scalp. The specimen consists of a shave biopsy (4 pieces) measuring [id number], 5x3x1, 4x3x1, 4x2x1 mm. Jar 0. 1:38 PM CDT DERMATOPATHOLOGY LABORATORY Microscopic Description Specimen A. SKIN, left scalp: There are nests of cytologically bland melanocytes within the dermis that mature with depth. 1:38 PM CDT DERMATOPATHOLOGY LABORATORY Disclaimer An external and internal positive and negative controls are appropriate for the histochemical, immunohistochemical and immunofluorescence stain(s) in this case (if any), except where stated explicitly. The performance characteristics of the stain(s) cited in this report were developed and its performance characteristic determined by the Dermatopathology Laboratory at [facility], directed by Dr. Rachel Aguero. These tests need not be, and therefore are not, approved by the [place] Food and Drug Administration. The tests are used for clinical purposes. Billing Codes Specimen Charges Stain Charges 20139 1 1:38 PM CDT DERMATOPATHOLOGY LABORATORY Embedded Images 1:38 PM CDT DERMATOPATHOLOGY LABORATORY Pathology/Cytolo gy TISSUE SPECIMEN FROM SKIN / Unknown 03/14/2025 2:41 PM CDT 03/16/2025 6:05 AM CDT Savannah Villareal MD LAB - PATHOLOGY/CYTOLOGY OR DERABLES Final Result DERMATOPATHOLOGY LABORATORY [facility] - Department of Dermatology [address] [place] [address], [facility] [phone] documented in this encounter Visit Diagnoses Not on filedocumented in this encounter
--- OUTSIDE RECORDS SUMMARY | 2025-08-06 07:20 | XMS_ITS | Clinical Summary ---
Author Organization [facility] Address [address] [address] Care Team Providers Care Yield Analyst Name Role Phone Unavailable Primary Care Provider Unavailabl e Source Comments [facility] ([employer]),non-owned Affiliates and Associated Physician Practices is amultiple site organization consisting of ambulatory clinics and hospital sitesin [place], [place], [place] and [place]. This disclosure is being madepursuant to the Care Everywhere program and may not contain all information available regarding this patient. Last updated 18.[facility] Social History Tobacco Use Types Packs/Day Years Used Date Smoking Tobacco: Never Assessed Sex and Gender Information Value Date Recorded Sex Assigned at Not on file Legal Sex Male 3:34 PM CDT Gender Identity Not on file Sexual Orientation Not on file Plan of Treatment Health Maintenance Due Date Last Done Comments DTAP/TDAP/TD VACCINES (1 - Tdap) 1964 PNEUMOCOCCAL VACCINE 50+ (1 of 1 - PCV) 1995 ZOSTER VACCINE (1 of 2) 1995 Respiratory Syncytial Virus (RSV) Vaccine Pt: or over 60 yrs (1 - 1-dose 75+ series) 2020 DEPRESSION SCREENING 10/11/2024 MEDICARE AWV CALENDAR YEAR 2024 COVID-19 VACCINE (1 - 2023-2 5 season) 2025 INFLUENZA VACCINE (#1) 2025 HEPATITIS B VACCINE Aged Out No longe r eligible based on patient's age to complete this topic HIB VACCINE Aged Out No longer eligi ble based on patient's age to complete this topic HPV VACCINE Aged Out No longer eligi ble based on patient's age to complete this topic MENINGOCOCCAL (Group B) VACC INE SHARED DECISION-MAKING Aged Out No longer eligibl e based on patient's age to complete this topic MENINGOCOCCAL GROUPS A/C/Y/W VACCINE Aged Out No longer eligible b ased on patient's age to complete this topic Insurance MEDICARE [employer] MEDICARE ADV HMO & PPO
== END 2025-08-06 07:15 | disposition home or self-care (01) ==
PROVIDERS: PCP Family Medicine; Visit Provider Family Medicine
DX: C79.51 Secondary malignant neoplasm of bone (principal)
CPT/HCPCS: 78306; A9503